=== PATIENT | male | born 1960 | race Caucasian/White ===

== ENCOUNTER 2018-03-01 14:14 | Emergency (ER) | payer OTHER ==
[2018-03-01 14:28] VITALS: BP 146/69
--- NOTE | 2018-03-01 15:09 | EDM.PDOC ---
ED HPI GENERAL MEDICAL PROBLEM - General Chief Complaint: ENT Problem Stated Complaint: POSS. BROKEN NOSE Time Seen by Provider: 03/01/18 14:28 Source of Information: Reports: Patient History Limitations: Reports: No Limitations - History of Present Illness INITIAL COMMENTS - FREE TEXT/NARRATIVE: The patient was at work and they were cleaning out some pipe and a high pressure pip broke loose and hit him in the right side of his nose. He has no LOC. He has no headache or neck pain. He did have a bloody nose for awhile, but it stopped now. He has no numbness or weakness. Onset: Sudden Duration: Minutes: Location: Reports: Face (Right side of his nose) Quality: Reports: Sharp Severity: Moderate Improves with: Reports: None Worsens with: Reports: None Associated Symptoms: Reports: No Other Symptoms Nose Pain Score (Numeric/FACES): 2 - Related Data Allergies Allergy/AdvReac Type Severity Reaction Status Date / Time IVP DYE Allergy Swelling Uncoded 03/01/18 14:28 Home Meds: Home Meds FLUoxetine HCl [Fluoxetine] 10 mg PO DAILY 08/16/16 [History] Ascorbic Acid [Vitamin C] 1,000 mg PO BID 08/21/16 [History] Metoprolol Succinate 50 mg PO DAILY 09/16/16 [History] Past Medical History HEENT History: Reports: Impaired Vision, Other (See Below) Other HEENT History: wears glasses Cardiovascular History: Reports: Heart Murmur, Hypertension Respiratory History: Reports: PE Gastrointestinal History: Reports: None Genitourinary History: Reports: Other (See Below) Other Genitourinary History: bladder CA in 1998. Musculoskeletal History: Reports: Fracture Psychiatric History: Reports: Anxiety Oncologic (Cancer) History: Reports: Bladder - Infectious Disease History Infectious Disease History: Reports: Chicken Pox - Past Surgical History Respiratory Surgical History: Reports: None GI Surgical History: Reports: Colonoscopy Social & Family History - Family History HEENT: Reports: Cataract Cardiac: Reports: Hypertension, Pacemaker, Stent Psychiatric: Reports: Anxiety Hematologic: Reports: None Immunologic: Reports: None Oncologic: Reports: Other (See Below) Other Oncologic Family History: intestinal cancer - Tobacco Use Smoking Status *Q: Never Smoker - Caffeine Use Caffeine Use: Reports: Coffee - Recreational Drug Use Recreational Drug Use: No ED ROS ENT - Review of Systems Review Of Systems: See Below Constitutional: Reports: No Symptoms HEENT: Reports: Other (Right sided nose pain and bleeding) Respiratory: Reports: No Symptoms Cardiovascular: Reports: No Symptoms Endocrine: Reports: No Symptoms GI/Abdominal: Reports: No Symptoms : Reports: No Symptoms ED EXAM, ENT - Physical Exam Exam: See Below Exam Limited By: No Limitations General Appearance: Alert, No Apparent Distress Ears: Normal External Exam Nose: Other (Mild edema and erythema to the right side of his nose. No deformity noted. There is a small abrasion near that area) Head: Normocephalic Neck: Normal Inspection Respiratory/Chest: No Respiratory Distress, Lungs Clear, Normal Breath Sounds Cardiovascular: Regular Rate, Rhythm, No Edema, No Murmur GI/Abdominal: Soft, Non-Tender, No Organomegaly, No Mass Back: Normal Inspection Extremities: Normal Inspection Neurological: Alert, Oriented, No Motor/Sensory Deficits Course - Vital Signs Last Recorded V/S: Last Vital Signs Temp 98 F 03/01/18 14:26 Pulse 61 03/01/18 14:26 Resp 16 03/01/18 14:26 BP 146/69 H 03/01/18 14:26 Pulse Ox 97 03/01/18 14:26 - Orders/Labs/Meds Orders: Active Orders 24 hr Category Date Time Status Nasal Bone Min 3V [CR] Stat Exams 03/01/18 14:32 Taken - Re-Assessments/Exams Free Text/Narrative Re-Assessment/Exam: 03/01/18 15:07 I did a nose x-ray and it looked good. I will discharge him home. Departure - Departure Time of Disposition: 15:10 Disposition: Home, Self-Care 01 Condition: Good Clinical Impression: Contusion of nose Qualifiers: Encounter type: initial encounter Qualified Code(s): S00.33XA - Contusion of nose, initial encounter - Discharge Information Referrals: Krystian Hays MD [Primary Care Provider] - Additional Instructions: Ice your nose for 15 minutes 3 times per day for 2 days. Take tylenol or motrin for pain. Please return if you are worse. - My Orders Last 24 Hours: My Active Orders 03/01/18 14:32 Nasal Bone Min 3V [CR] Stat - Assessment/Plan Last 24 Hours: My Active Orders 03/01/18 14:32 Nasal Bone Min 3V [CR] Stat
--- NOTE | 2018-03-01 15:16 | CR ---
Nasal bone: Three views of the nasal bone were obtained. Comparison: No previous study. Visualized sinuses are clear. No fracture or other nasal bone abnormality is appreciated. Soft tissue swelling is noted. Impression: 1. Soft tissue swelling. 2. No additional abnormality is appreciated on three-view nasal bone exam. Diagnostic code #2
== END 2018-03-01 15:26 | disposition home or self-care (01) ==
LOC: JD.ED 14:14
DX: S00.33XA Contusion of nose, initial encounter (principal); I10 Essential (primary) hypertension; Z79.899 Other long term (current) drug therapy; Z91.041 Radiographic dye allergy status; W22.8XXA Striking against or struck by other objects, initial encounter; Y99.0 Civilian activity done for income or pay
CPT/HCPCS: 70160; 70160-26; 99283